=== PATIENT | female | born 1985 | race Caucasian/White ===

== ENCOUNTER 2020-10-05 18:02 | Outpatient (CLI) | payer OTHER ==
[2020-10-05] MEDS ORDERED: PRENATAL TABLE1 EAC1 PO (21:40)
== END 2020-10-06 08:54 | disposition home or self-care (01) ==
LOC: OBS/DEL 18:02
PROVIDERS: ATTEND Obstetrics & Gynecology
DX: O26.893 Other specified pregnancy related conditions, third trimester (principal); N93.0 Postcoital and contact bleeding

== ENCOUNTER 2020-12-18 22:53 | Outpatient (CLI) | payer OTHER ==
[~2020-12-18 22:53] MED LIST: PRENATAL TABLE1 EAC1 PO
[2020-12-18] MEDS ORDERED: IRON236 MG (23:14)
== END 2020-12-19 12:45 | disposition home or self-care (01) ==
LOC: OBS/DEL 22:53
PROVIDERS: ATTEND Obstetrics & Gynecology
DX: O26.893 Other specified pregnancy related conditions, third trimester (principal); R10.2 Pelvic and perineal pain; Z3A.35 35 weeks gestation of pregnancy

== ENCOUNTER 2021-01-10 12:59 | Inpatient (IN) | payer OTHER ==
[~2021-01-10] VITALS: Ht 167.6 cm; Wt 3.2 kg
[~2021-01-10 12:59] MED LIST changes: +IRON236 MG
== END 2021-01-13 10:38 | disposition home or self-care (01) | DRG 788 ==
LOC: LDR 12:59 → SURG-SUITE 12:59
PROVIDERS: ADMIT Obstetrics & Gynecology; ATTEND Obstetrics & Gynecology
PROC: 4A1HXFZ Monitoring of Products of Conception, Cardiac Rhythm, External Approach (ICD-10-PCS; 2021-01-10)
PROC: 10D00Z1 Extraction of Products of Conception, Low, Open Approach (ICD-10-PCS; principal; 2021-01-10 16:00)
DX: O14.93 Unspecified pre-eclampsia, third trimester (principal); O62.0 Primary inadequate contractions; Z37.0 Single live birth; Z3A.38 38 weeks gestation of pregnancy; Z20.822 Contact with and (suspected) exposure to COVID-19